=== PATIENT | female | born 1945 | race Caucasian/White ===

== ENCOUNTER → 2016-08-21 | Outpatient (CLI) | payer BC ==
[~2016-08-21] MED LIST: AMIT25TA19 PO; ASPCH81X PO; FAMO20TA11 PO; MULTTAB58 PO; PRED1SUS3 OPB; VERA120T15 PO; calcium PO
--- NOTE | 2016-08-21 13:24 | MAMMOGRAPHY REPORT ---
BILATERAL DIGITAL SCREENING MAMMOGRAM WITH CAD: 08/21/2016 TECHNIQUE: Current study was also evaluated with a Computer Aided Detection (CAD) system. Bilatera l CC and MLO views were obtained. COMPARISON: Comparison is made to exams dated: 08/16/2015 mammogram, 06/26/2013 mammogram, 06/21/2011 mammogram, 06/28/2014 mammogram, 06/24/2012 mammogram, and 06/20/2010 mammogram - [facility]. BREAST COMPOSITION: There are scattered areas of fibroglandular density in both breasts. FINDINGS: No suspicious masses, calcifications, or areas of architectural distortion are noted in e ither breast. There has been no significant interval change compared to prior exams. Scattered bilat eral benign-appearing calcifications are not significantly changed. There are stable benign intrama mmary lymph nodes in the left upper outer quadrant. IMPRESSION: ACR BI-RADS CATEGORY 2: BENIGN There is no mammographic evidence of malignancy. A 1 year screening mammogram is recommended. The p atient will receive written notification of the results. Approximately 10% of breast cancers are not detected with mammography. A negative mammographic repor t should not delay biopsy if a clinically suggestive mass is present. Nupur Dodge M.D. ah/:08/21/2016 10:04:[address] Reporter: Yuridia LANDRY)(Kike), [facility] letter sent: Normal 1/2 BI-RADS Code: ACR BI-RADS Category 2: Benign
== END | disposition home or self-care (01) ==
LOC: C.MAMM 09:44
PROVIDERS: ATTEND Family Medicine
DX: Z12.31 Encounter for screening mammogram for malignant neoplasm of breast (principal)

== ENCOUNTER → 2017-08-22 | Outpatient (CLI) | payer BC ==
--- NOTE | 2017-08-22 15:08 | MAMMOGRAPHY REPORT ---
BILATERAL DIGITAL SCREENING MAMMOGRAM TOMOSYNTHESIS WITH CAD: 08/22/2017 CLINICAL HISTORY: Routine screening. Patient has no complaints. TECHNIQUE: Breast tomosynthesis in addition to standard 2D mammography was performed. Current study was also evaluated with a Computer Aided Detection (CAD) system. COMPARISON: Comparison is made to exams dated: 08/21/2016 mammogram, 08/16/2015 mammogram, 06/28/2014 m ammogram, 06/26/2013 mammogram, 06/24/2012 mammogram, and 06/20/2010 mammogram - [facility]. BREAST COMPOSITION: There are scattered areas of fibroglandular density in both breasts. FINDINGS: No suspicious masses, calcifications, or areas of architectural distortion are noted in ei ther breast. There has been no significant interval change compared to prior exams. Scattered bilater al benign-appearing calcifications are not significantly changed. IMPRESSION: ACR BI-RADS CATEGORY 2: BENIGN There is no mammographic evidence of malignancy. A 1 year screening mammogram is recommended. The pa tient will receive written notification of the results. Approximately 10% of breast cancers are not detected with mammography. A negative mammographic report should not delay biopsy if a clinically suggestive mass is present. Nupur Dodge M.D. /:08/22/2017 12:07:09 Editing Clerk: Jacinda LANDRY)(M), [facility] letter sent: Normal 1/2 BI-RADS Code: ACR BI-RADS Category 2: Benign
== END | disposition home or self-care (01) ==
LOC: C.MAMM 09:46
PROVIDERS: ATTEND Family Medicine
DX: Z12.31 Encounter for screening mammogram for malignant neoplasm of breast (principal)

== ENCOUNTER 2022-10-01 11:33 | Inpatient (IN) ==
--- NOTE | 2022-10-01 12:08 | Emergency Department Note ---
Impression & Plan Hypoxia, Hypokalemia, Otitis externa, Sinus tachycardia ED Provider Note NAME: JERILYN OCAMPO AGE: 76 SEX: F : 1945 ARRIVES VIA: Ambulance INFORMANT: Patient, ED PROVIDER(S): Miguel Evans MD CHIEF COMPLAINT: Tachycardia MEDICAL DECISION MAKING: Patient presents referral from primary care clinic due to concern for tac hycardia. Patient states that she does take verapamil. Patient last took it last evening. IV was established blood was obtained the patient was ordered some Cardizem 20 mg IV in addition to IV fluids. TSH also obtained. Initial EKG does show sinus tach unsure as to whether or not patient could have an AVNRT. The patient's blood work shows a white count of 14. The patient's H&H and platelet count are unremarkable. Patient does not Ajala have an elevated BSG but normal electrolytes with exception of mild hypokalemia 3.4. TSH is normal. CT angiography was ordered as the patient had hypoxia. Patient did relate that she has a history of NAKUL and does use a CPAP. Patient does not use oxygen at home. Former smoker many years ago. COVID-negative. CT angiography of the chest is negative. The patient has had intermittent hypoxia I did speak with the on-call hospice service Evelyn Hurtado PA-C and the patient was admitted by Dr. Hercules. Critical Care: I have personally spent 37 minutes of critical care time in direct management of this patient. This includes bedside care, interpretation of diagnostic studies, and testing, discussion with consultants, patient, and family members, and other require inpatient management activities. This 37 minutes is in excess of all separately billable procedures. Prior /Outside records reviewed: None Differential diagnosis: Premature contractions, electrolyte abnormality, cardiac dysrhythmia, thyroid dysfunction, pulmonary embolism, infection, gastrointestinal, as well as other pathologies. Diagnostics, as interpreted by me: ECG: Sinus tachycardia versus AVNRT with a ventricular rate of 123, wide QRS right bundle branch block pattern, right axis deviation no ST elevations T wave inversion in V2. Patient's EKG is changed with a faster rate wider QRS from comparison February 08, 2012. Cardiac monitoring: An order was placed for continuous cardiac monitoring. The monitor shows a rate of 122 with tachycardic and rate rhythm. Patient was placed on pulse oximetry Medical decision rules: None Imaging studies: See below HPI: Patient presents as a referral from primary care clinic due to concern for elevated heart rate in the 120s. Patient states that she initially presented due to concern for left-sided ear pain. Patient states that she had the ear pain for several days. The patient denies any changes in medications. Patient has no chest pain shortness of breath nausea vomiting no fevers or chills. Patient denies any exertional symptoms and states that she is compliant with her meds. Patient does take verapamil only in the evening time 300 mg and does follow with Dr. Talavera again with [facility] cardiology. Patient denies any falls or trauma PAST MEDICAL HISTORY: See Below PAST SURGICAL HISTORY: See Below SOCIAL HISTORY: See Below HOME MEDICATIONS: See Below ALLERGIES: See Below VITALS: See Below PHYSICAL EXAMINATION: GENERAL: NAD, wearing a mask, non-toxic. EYE EXAM: Normal conjunctiva. PERRL, no anisocoria and EOM's grossly intact w/o pain. Ears: Left EAC noted with associated swelling unable to visualize the TM NECK: Supple, no nuchal rigidity, no adenopathy, non-tender. No signs of meningismus. FROM of the neck with good chin to chest and neck extension. No stridor. LUNGS: Clear to auscultation. Normal chest wall mechanics. HEART: Tachycardic and regular, systolic ejection murmur noted ABDOMEN: Abdomen soft, non-tender, normo-active bowel sounds, no masses, no rebound or guarding. BACK: No CVA TTP. SKIN: No rashes and no bruising. UPPER EXTREMITIES: Upper extremities are grossly normal. LOWER EXTREMITIES: Grossly normal, no edema. Negative Homans' sign bilaterally. Wearing flat wearing glasses NEURO EXAM: A&O x3, cranial nerves II-XII grossly intact, normal speech, moves all 4 extremities. 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 Beliefs That Will Affect Care: None Current Living Situation: Spouse Other Information That Helps Us Care for You: No Feels Safe at Home: Yes Safety Concerns: Feels Safe At This Time Assistive Devices: Cane Allergies Allergies Allergy/AdvReac Type Severity Reaction Status Date / Time No Known Allergies Allergy Unknown Verified 10/01/22 15:23 Home Meds Home Medications Medication Instructions Recorded Confirmed amoxicillin 500 mg capsule 500 mg PO USEASDIRECTD PRN Dental 06/20/19 10/01/22 Work atorvastatin 20 mg tablet (Lipitor) 20 mg PO HS 06/20/19 10/01/22 nortriptyline 25 mg capsule 25 mg PO HS 06/20/19 10/01/22 (Pamelor) verapamil 300 mg capsule 24hr 300 mg PO HS 06/20/19 10/01/[address],ext.release (Verelan PM) calcium carbonate 600 mg-vitamin 1 tab PO HS 01/10/21 10/01/22 D3 10 mcg (400 unit) tablet (Calcium 600 + D(3)) lisinopril 2.5 mg tablet (Zestril) 2.5 mg PO QAM 01/10/21 10/01/22 multivitamin 1 tab PO QAM 01/10/21 10/01/22 prednisolone acetate 1 % eye 1 drp OPB HS 01/10/21 10/01/22 drops,suspension (Pred Forte) alendronate 70 mg tablet 70 mg PO WK 10/01/22 10/01/22 diclofenac sodium 1 % topical gel 1 ea topical QID PRN Pain 10/01/22 10/01/22 famotidine 20 mg tablet 20 mg PO HS 10/01/22 10/01/22 metformin 500 mg tablet,extended 2,000 mg PO DAILYBD 10/01/22 10/01/22 release 24 hr Results & Data (ED) Vital Signs Vital Signs - 24 hr 10/01/22 11:03 10/01/22 11:39 10/01/22 12:47 Temperature 36.8 C Temperature Source Oral Pulse Rate 122 H Pulse Rate from SpO2 Sensor Respiratory Rate 20 Respiratory Effort / Characteristics Non-Labored Spontaneous Respiratory Depth Normal Respiratory Pattern Regular Blood Pressure 149/91 H Blood Pressure Mean 110 Pulse Oximetry 93 93 88 L Oxygen Delivery Method Room Air Room Air Room Air Oxygen Flow Rate 0 0 Sepsis Recent Fever Within 48 Hours No Sepsis New/Unexplained Change in Mental Status N/A Sepsis Action Taken by Nursing No Action Required Oxygen Flow Rate - Titration 2 Pulse Oximetry Post Tiitration 95 10/01/22 12:57 10/01/22 12:56 10/01/22 13:00 Temperature Temperature Source Pulse Rate 115 H 113 H Pulse Rate from SpO2 Sensor 114 H Respiratory Rate 21 Respiratory Effort / Characteristics Respiratory Depth Respiratory Pattern Blood Pressure 167/92 H Blood Pressure Mean 117 Pulse Oximetry 96 Oxygen Delivery Method Oxygen Flow Rate Sepsis Recent Fever Within 48 Hours Sepsis New/Unexplained Change in Mental Status Sepsis Action Taken by Nursing Oxygen Flow Rate - Titration Pulse Oximetry Post Tiitration 10/01/22 13:00 10/01/22 13:30 10/01/22 13:30 Temperature Temperature Source Pulse Rate 114 H 119 H Pulse Rate from SpO2 Sensor 116 H Respiratory Rate 21 17 Respiratory Effort / Characteristics Respiratory Depth Respiratory Pattern Blood Pressure 167/92 H Blood Pressure Mean 117 Pulse Oximetry 96 Oxygen Delivery Method Room Air Oxygen Flow Rate Sepsis Recent Fever Within 48 Hours Sepsis New/Unexplained Change in Mental Status Sepsis Action Taken by Nursing Oxygen Flow Rate - Titration Pulse Oximetry Post Tiitration 10/01/22 13:51 10/01/22 13:51 10/01/22 14:00 Temperature Temperature Source Pulse Rate 119 H Pulse Rate from SpO2 Sensor 119 H Respiratory Rate 23 Respiratory Effort / Characteristics Respiratory Depth Respiratory Pattern Blood Pressure 171/93 H 161/103 H Blood Pressure Mean 119 122 Pulse Oximetry 95 Oxygen Delivery Method Oxygen Flow Rate Sepsis Recent Fever Within 48 Hours Sepsis New/Unexplained Change in Mental Status Sepsis Action Taken by Nursing Oxygen Flow Rate - Titration Pulse Oximetry Post Tiitration 10/01/22 14:00 10/01/22 14:30 10/01/22 14:30 Temperature Temperature Source Pulse Rate 119 H 120 H Pulse Rate from SpO2 Sensor 120 H 120 H Respiratory Rate 23 20 Respiratory Effort / Characteristics Respiratory Depth Respiratory Pattern Blood Pressure 159/96 H Blood Pressure Mean 117 Pulse Oximetry 95 96 Oxygen Delivery Method Oxygen Flow Rate Sepsis Recent Fever Within 48 Hours Sepsis New/Unexplained Change in Mental Status Sepsis Action Taken by Nursing Oxygen Flow Rate - Titration Pulse Oximetry Post Tiitration 10/01/22 15:16 10/01/22 15:16 Temperature Temperature Source Pulse Rate 121 H Pulse Rate from SpO2 Sensor 121 H Respiratory Rate 16 Respiratory Effort / Characteristics Respiratory Depth Respiratory Pattern Blood Pressure 171/92 H Blood Pressure Mean 118 Pulse Oximetry 95 Oxygen Delivery Method Oxygen Flow Rate Sepsis Recent Fever Within 48 Hours Sepsis New/Unexplained Change in Mental Status Sepsis Action Taken by Nursing Oxygen Flow Rate - Titration Pulse Oximetry Post Tiitration Home Medications Current Medication List: was personally reviewed by me Laboratory Data Attestation: I reviewed the patient's lab results. 10/01/22 11:48 10/01/22 11:48 Lab Results 10/01/22 10/01/22 10/01/22 Range/Units 11:48 11:48 11:48 WBC 14.23 H (4.8-10.8) K/ul RBC 5.42 H (4.20-5.40) M/uL Hgb 14.2 (12.0-16.0) g/dl Hct 43.5 (37.0-47.0) % MCV 80.3 (80.0-100.0) fL MCH 26.2 (25.0-34.0) pg MCHC 32.6 (32.0-36.0) g/dL RDW Std Deviation 42.1 (36.4-46.3) fL RDW Coeff of Ronnie 14.5 (11.5-14.5) % Plt Count 326 (130-400) K/uL MPV 9.2 L (9.4-12.4) fL Immature Gran % (Auto) 0.4 % Neut % (Auto) 86.4 % Lymph % (Auto) 7.3 % Harnett % (Auto) 5.4 % Eos % (Auto) 0.1 % Baso % (Auto) 0.4 % Neut # (Auto) 12.30 H (1.40-6.50) K/uL Lymph # (Auto) 1.04 L (1.2-3.4) K/uL Harnett # (Auto) 0.77 H (0.11-0.59) K/uL Eos # (Auto) 0.02 (0-0.50) K/uL Baso # (Auto) 0.05 (0-0.2) K/uL Immature Gran # (Auto) 0.05 (0.01-0.20) K/uL PT 12.4 H (9.0-12.0) Seconds INR 1.2 H (0.9-1.1) APTT 32.8 H (21.0-31.0) Seconds PTT Ratio 1.2 Sodium 137 (136-145) mmol/L Potassium 3.4 L (3.5-5.1) mmol/L Chloride 99 (98-107) mmol/L Carbon Dioxide 27 (21-32) mmol/L Anion Gap 11 (3-11) BUN 9 (6-23) mg/dl Creatinine 0.51 L (0.6-1.2) mg/dl Est Cr Clr Drug Dosing 102.8 ml/min Est GFR ( Amer) 109.8 ml/min Est GFR (Non-Af Amer) 94.7 ml/min BUN/Creatinine Ratio 17.6 (10-20) Glucose 210 H (70-99(Fasting)) mg/dl Calcium 9.7 (8.6-10.3) mg/dl Phosphorus 3.1 (2.5-4.9) mg/dl Magnesium 1.9 (1.7-2.4) mg/dl Total Bilirubin 0.8 (0.2-1.0) mg/dl AST 17 (13-39) U/L ALT 21 (7-52) U/L Alkaline Phosphatase 92 (34-104) U/L Troponin I High Sens 9.7 (0-14) pg/ml Total Protein 8.1 (6.0-8.3) gm/dl Albumin 4.5 (3.4-5.0) gm/dl Globulin 3.6 (2.5-4.0) gm/dl Albumin/Globulin Ratio 1.3 (0.9-2) TSH (0.300-4.500) uIu/ml SARS-CoV-2, RNA, NAAT (NEGATIVE) 10/01/22 10/01/22 10/01/22 Range/Units 11:48 11:48 12:38 WBC (4.8-10.8) K/ul RBC (4.20-5.40) M/uL Hgb (12.0-16.0) g/dl Hct (37.0-47.0) % MCV (80.0-100.0) fL MCH (25.0-34.0) pg MCHC (32.0-36.0) g/dL RDW Std Deviation (36.4-46.3) fL RDW Coeff of Ronnie (11.5-14.5) % Plt Count (130-400) K/uL MPV (9.4-12.4) fL Immature Gran % (Auto) % Neut % (Auto) % Lymph % (Auto) % Harnett % (Auto) % Eos % (Auto) % Baso % (Auto) % Neut # (Auto) (1.40-6.50) K/uL Lymph # (Auto) (1.2-3.4) K/uL Harnett # (Auto) (0.11-0.59) K/uL Eos # (Auto) (0-0.50) K/uL Baso # (Auto) (0-0.2) K/uL Immature Gran # (Auto) (0.01-0.20) K/uL PT (9.0-12.0) Seconds INR (0.9-1.1) APTT (21.0-31.0) Seconds PTT Ratio Sodium (136-145) mmol/L Potassium (3.5-5.1) mmol/L Chloride (98-107) mmol/L Carbon Dioxide (21-32) mmol/L Anion Gap (3-11) BUN (6-23) mg/dl Creatinine (0.6-1.2) mg/dl Est Cr Clr Drug Dosing ml/min Est GFR ( Amer) ml/min Est GFR (Non-Af Amer) ml/min BUN/Creatinine Ratio (10-20) Glucose (70-99(Fasting)) mg/dl Calcium (8.6-10.3) mg/dl Phosphorus Cancelled (2.5-4.9) mg/dl Magnesium (1.7-2.4) mg/dl Total Bilirubin (0.2-1.0) mg/dl AST (13-39) U/L ALT (7-52) U/L Alkaline Phosphatase (34-104) U/L Troponin I High Sens (0-14) pg/ml Total Protein (6.0-8.3) gm/dl Albumin (3.4-5.0) gm/dl Globulin (2.5-4.0) gm/dl Albumin/Globulin Ratio (0.9-2) TSH 0.418 (0.300-4.500) uIu/ml SARS-CoV-2, RNA, NAAT See Comment (NEGATIVE) 10/01/22 Range/Units 15:16 WBC (4.8-10.8) K/ul RBC (4.20-5.40) M/uL Hgb (12.0-16.0) g/dl Hct (37.0-47.0) % MCV (80.0-100.0) fL MCH (25.0-34.0) pg MCHC (32.0-36.0) g/dL RDW Std Deviation (36.4-46.3) fL RDW Coeff of Ronnie (11.5-14.5) % Plt Count (130-400) K/uL MPV (9.4-12.4) fL Immature Gran % (Auto) % Neut % (Auto) % Lymph % (Auto) % Harnett % (Auto) % Eos % (Auto) % Baso % (Auto) % Neut # (Auto) (1.40-6.50) K/uL Lymph # (Auto) (1.2-3.4) K/uL Harnett # (Auto) (0.11-0.59) K/uL Eos # (Auto) (0-0.50) K/uL Baso # (Auto) (0-0.2) K/uL Immature Gran # (Auto) (0.01-0.20) K/uL PT (9.0-12.0) Seconds INR (0.9-1.1) APTT (21.0-31.0) Seconds PTT Ratio Sodium (136-145) mmol/L Potassium (3.5-5.1) mmol/L Chloride (98-107) mmol/L Carbon Dioxide (21-32) mmol/L Anion Gap (3-11) BUN (6-23) mg/dl Creatinine (0.6-1.2) mg/dl Est Cr Clr Drug Dosing ml/min Est GFR ( Amer) ml/min Est GFR (Non-Af Amer) ml/min BUN/Creatinine Ratio (10-20) Glucose (70-99(Fasting)) mg/dl Calcium (8.6-10.3) mg/dl Phosphorus (2.5-4.9) mg/dl Magnesium (1.7-2.4) mg/dl Total Bilirubin (0.2-1.0) mg/dl AST (13-39) U/L ALT (7-52) U/L Alkaline Phosphatase (34-104) U/L Troponin I High Sens (0-14) pg/ml Total Protein (6.0-8.3) gm/dl Albumin (3.4-5.0) gm/dl Globulin (2.5-4.0) gm/dl Albumin/Globulin Ratio (0.9-2) TSH (0.300-4.500) uIu/ml SARS-CoV-2, RNA, NAAT NEGATIVE (NEGATIVE) Administered Medications Acetaminophen (Acetaminophen 325 Mg Tab) 650 mg PO Q4H PRN PRN Reason: Pain or Fever Stop: 10/31/22 19:08 Last Admin: 10/02/22 00:33 Dose: 650 mg Documented By: CARO Atorvastatin Calcium (Atorvastatin 20 Mg Tab) 20 mg PO HS DACIA Stop: 10/31/22 20:59 Last Admin: 10/01/22 21:45 Dose: 20 mg Documented By: CARO Calcium/Vitamin D (Calcium 600mg + Vit D 400 Iu Tab) 1 tab PO HS DACIA Stop: 10/31/22 20:59 Last Admin: 10/01/22 21:45 Dose: 1 tab Documented By: CARO Ciprofloxacin/Dexamethasone (Cipro 0.3%/Dexamethasone 0.1% Otic Susp 7.5ml) 2 drops OTL BID DACIA Stop: 10/31/22 20:59 Last Admin: 10/01/22 21:45 Dose: 2 drops Documented By: CARO Famotidine (Famotidine 20 Mg Tab) 20 mg PO HS DACIA Stop: 10/31/22 20:59 Last Admin: 10/01/22 21:46 Dose: 20 mg Documented By: CARO Nortriptyline HCl (Nortriptyline Hcl 25 Mg Cap) 25 mg PO HS DACIA Stop: 10/31/22 20:59 Last Admin: 10/01/22 21:45 Dose: 25 mg Documented By: CARO Oxycodone HCl (Oxycodone Hcl Ir 5 Mg Tab (Immediate Release)) 5 mg PO Q4H PRN PRN Reason: Pain Stop: 10/15/22 19:08 Last Admin: 10/02/22 00:33 Dose: 5 mg Documented By: CARO Verapamil HCl (Verapamil Hcl 120 Mg Tabcr) 120 mg PO HS DACIA Stop: 10/31/22 20:59 Last Admin: 10/01/22 21:46 Dose: 120 mg Documented By: CARO Verapamil HCl (Verapamil Hcl 180 Mg Tabcr) 180 mg PO HS DACIA Stop: 10/31/22 20:59 Last Admin: 10/01/22 21:46 Dose: 180 mg Documented By: CARO Discontinued Medications Diltiazem HCl (Diltiazem Hcl 5 Mg/Ml 5 Ml Vial) 20 mg IV NOW STA Stop: 10/01/22 12:25 Last Admin: 10/01/22 12:31 Dose: 20 mg Documented By: VADIM Co-signed By: MARIANO Sodium Chloride (Nss) 500 mls @ 999 mls/hr IV .Q31M STA Stop: 10/01/22 12:52 Last Infusion: 10/01/22 13:02 Dose: 0 mls/hr Documented By: Admin: 10/01/22 12:30 Dose: 999 mls/hr Documented By: VADIM Sodium Chloride (Nss 1000ml) 500 mls @ 999 mls/hr IV .Q31M ONE Stop: 10/01/22 15:19 Last Infusion: 10/01/22 17:35 Dose: 0 mls/hr Documented By: Admin: 10/01/22 15:23 Dose: 999 mls/hr Documented By: VADIM Magnesium Sulfate/Dextrose (Magnesium Sulfate / D5w) 1 gm in 100 mls @ 50 mls/hr IV ONE ONE Stop: 10/01/22 17:15 Last Infusion: 10/01/22 17:35 Dose: 0 mls/hr Documented By: Admin: 10/01/22 15:28 Dose: 50 mls/hr Documented By: VADIM Ioversol (Optiray 320 500ml) 111 ml IV ONCE ONE Stop: 10/01/22 13:57 Last Admin: 10/01/22 13:44 Dose: 111 ml Documented By: LAMIN Ioversol (Optiray 350 100ml) 88 ml IV ONCE ONE Stop: 10/01/22 21:02 Last Admin: 10/01/22 21:02 Dose: 88 ml Documented By: YAMIL Lisinopril (Lisinopril 2.5 Mg Tab) 2.5 mg PO ONE ONE Stop: 10/01/22 15:38 Last Admin: 10/01/22 16:46 Dose: 2.5 mg Documented By: VADIM Morphine Sulfate (Morphine Sulfate 4 Mg/Ml 1 Ml Carp\Vial) 4 mg IV NOW STA Stop: 10/01/22 16:01 Last Admin: 10/01/22 16:14 Dose: 4 mg Documented By: VADIM Potassium Chloride (Potassium Chloride Crtab 20 Meq Tabcr) 40 meq PO NOW STA Stop: 10/01/22 15:12 Last Admin: 10/01/22 15:22 Dose: 40 meq Documented By: VADIM Imaging Data Radiologist's Impression: Chest CTA 10/01/22 12:47 CT ANGIOGRAM OF THE CHEST CLINICAL HISTORY: Tachycardia. COMPARISON STUDY: Chest x-ray dated 08/21/2018. Chest CT dated 02/08/2012. TECHNIQUE: Following the IV administration of 111 cc of Optiray 320, CT angiogram of the chest was performed from the upper abdomen to the thoracic inlet utilizing the pulmonary embolus protocol. Images are reviewed in the axial, sagittal, and coronal planes. 3-D MIPS images are created and assessed. IV contrast was administered without complication. A dose lowering technique was utilized adhering to the principles of ALARA. CT DOSE: 428.32 mGy.cm FINDINGS: Thyroid: Mildly enlarged and heterogeneous. Coarse calcifications are noted in the left lobe. Thoracic aorta: There is moderate atherosclerotic calcification of the thoracic aorta, which is normal in caliber and demonstrates standard 3-vessel arch anatomy. No dissection is seen. Pulmonary vasculature: The main pulmonary arteries are dilated suggesting pulmonary artery hypertension. There are no filling defects identified in main, lobar, or segmental pulmonary branches to suggest pulmonary embolus. Heart: The heart is enlarged and without pericardial effusion. The coronary arteries and mitral annulus are densely calcified. Lungs and pleural spaces: Evaluation of the lung parenchyma is degraded by motion artifact. No airspace consolidation or pleural effusion is identified. Foci of parenchymal scarring are seen throughout both lungs. The trachea and central airways are clear. Foci of pleural-based nodularity in the left lower lobe along the major fissure are seen on images #126 and #135. These measure up to 6 mm. An 11 mm focus of pleural-based nodularity along the right major fissure is seen on image #108. These have been present dating back to 2011. There are scattered calcified granulomas. Mediastinum: There is no mediastinal lymphadenopathy. Miley: Clear. Axillae: There is no axillary lymphadenopathy. Upper abdomen: Partially visualized upper abdominal viscera is within normal limits. Skeletal structures: The skeletal structures are osteopenic. Degenerative change is noted in the shoulders and thoracic spine. No lytic or blastic bony lesions are seen. There are subacute to chronic left anterior rib fractures. IMPRESSION: 1. There is no evidence of pulmonary embolus in the main, lobar, or segmental pulmonary arteries. 2. There is no airspace consolidation or pleural effusion. 3. Cardiomegaly. 4. Additional findings as above. ACT 112: Negative or not required by law. Electronically signed by: Yemi Ibarra M.D. 10/01/2022 1:57 PM Discharge Plan Visit Data Chief Complaint: Tachycardia Stated Complaint: TACHYCARDIA ED Provider: Miguel Evans Discharge Problem: Hypoxia, Hypokalemia, Otitis externa, Sinus tachycardia Patient Disposition: Admitted As Inpatient Discharge Instructions Interventions: ED Discharge Assessment Last Done: 10/01/22 18:10
[2022-10-01] MEDS ORDERED: SODIUM CHLORIDE 0.9% 500 ML IV STA (12:22)
[2022-10-01] MEDS ORDERED: dilTIAZem HCl 5 MG/ML 5 ML VIAL IV STA (12:24)
[2022-10-01 12:40] LABS: Basophils # (auto) 0.05 K/uL (0-0.2); Basophils % (auto) 0.4 %; Eosinophils # (auto) 0.02 K/uL (0-0.50); Eosinophils % (auto) 0.1 %; Hematocrit (blood only) 43.5 % (37.0-47.0); Hemoglobin 14.2 g/dl (12.0-16.0); Immature Granulocytes # (auto) 0.05 K/uL (0.01-0.20); Immature Granulocytes % (auto) 0.4 %; Lymphocytes # (auto) 1.04 K/uL (1.2-3.4); Lymphocytes % (auto) 7.3 %; Mean Corpuscular Hemoglobin 26.2 pg (25.0-34.0); Mean Corpuscular Hgb Conc 32.6 g/dL (32.0-36.0); Mean Corpuscular Volume 80.3 fL (80.0-100.0); Mean Platelet Volume 9.2 fL (9.4-12.4); Monocytes # (auto) 0.77 K/uL (0.11-0.59); Monocytes % (auto) 5.4 %; Neutrophils % (auto) 86.4 %; Platelet Count 326 K/uL (130-400); RDW Coefficient of Variation 14.5 % (11.5-14.5); RDW Standard Deviation 42.1 fL (36.4-46.3); Red Blood Count 5.42 M/uL (4.20-5.40); White Blood Count 14.23 K/ul (4.8-10.8)
[2022-10-01 12:57] LABS: INR 1.2 (0.9-1.1); Partial Thromboplastin Ratio 1.2; Partial Thromboplastin Time 32.8 Seconds (21.0-31.0); Prothrombin Time 12.4 Seconds (9.0-12.0)
[2022-10-01 13:00] LABS: Albumin Globulin Ratio 1.3 (0.9-2); Albumin Level 4.5 gm/dl (3.4-5.0); BUN Creatinine Ratio 17.6 (10-20); Bilirubin,Total 0.8 mg/dl (0.2-1.0); Calcium 9.7 mg/dl (8.6-10.3); Creatinine Clr Calc Pharmacy 102.8 ml/min; Est GFR (African American) 109.8 ml/min; Est GFR (Non-African American) 94.7 ml/min; Globulin 3.6 gm/dl (2.5-4.0); Magnesium 1.9 mg/dl (1.7-2.4); Potassium 3.4 mmol/L (3.5-5.1); Total Protein 8.1 gm/dl (6.0-8.3)
[2022-10-01 13:10] LABS: Phosphorus 3.1 mg/dl (2.5-4.9)
[2022-10-01 13:17] LABS: Troponin I High Sensitivity 9.7 pg/ml (0-14)
[2022-10-01] MEDS ORDERED: OPTIRAY 320 500ml IV ONE (13:56)
--- NOTE | 2022-10-01 13:59 | CT Scan Report ---
CT ANGIOGRAM OF THE CHEST CLINICAL HISTORY: Tachycardia. COMPARISON STUDY: Chest x-ray dated 08/21/2018. Chest CT dated 02/08/2012. TECHNIQUE: Following the IV administration of 111 cc of Optiray 320, CT angiogram of the chest was pe rformed from the upper abdomen to the thoracic inlet utilizing the pulmonary embolus protocol. Images are reviewed in the axial, sagittal, and coronal planes. 3-D MIPS images are created and assessed. I V contrast was administered without complication. A dose lowering technique was utilized adhering to the principles of ALARA. CT DOSE: 428.32 mGy.cm FINDINGS: Thyroid: Mildly enlarged and heterogeneous. Coarse calcifications are noted in the left lobe. Thoracic aorta: There is moderate atherosclerotic calcification of the thoracic aorta, which is goldie l in caliber and demonstrates standard 3-vessel arch anatomy. No dissection is seen. Pulmonary vasculature: The main pulmonary arteries are dilated suggesting pulmonary artery hypertensi on. There are no filling defects identified in main, lobar, or segmental pulmonary branches to sugges t pulmonary embolus. Heart: The heart is enlarged and without pericardial effusion. The coronary arteries and mitral annul us are densely calcified. Lungs and pleural spaces: Evaluation of the lung parenchyma is degraded by motion artifact. No airspa ce consolidation or pleural effusion is identified. Foci of parenchymal scarring are seen throughout both lungs. The trachea and central airways are clear. Foci of pleural-based nodularity in the left l ower lobe along the major fissure are seen on images #126 and #135. These measure up to 6 mm. An 11 m m focus of pleural-based nodularity along the right major fissure is seen on image #108. These have b een present dating back to 2011. There are scattered calcified granulomas. Mediastinum: There is no mediastinal lymphadenopathy. Miley: Clear. Axillae: There is no axillary lymphadenopathy. Upper abdomen: Partially visualized upper abdominal viscera is within normal limits. Skeletal structures: The skeletal structures are osteopenic. Degenerative change is noted in the shou lders and thoracic spine. No lytic or blastic bony lesions are seen. There are subacute to chronic le ft anterior rib fractures. IMPRESSION: 1. There is no evidence of pulmonary embolus in the main, lobar, or segmental pulmonary arteries. 2. There is no airspace consolidation or pleural effusion. 3. Cardiomegaly. 4. Additional findings as above. ACT 112: Negative or not required by law. Electronically signed by: Yemi Ibarra M.D. 10/01/2022 1:57 PM
[2022-10-01] MEDS ORDERED: SODIUM CHLORIDE 0.9% 1000ML 500 ML IV ONE (14:49)
[2022-10-01] MEDS ORDERED: POTASSIUM CHLORIDE CRTAB 20 MEQ TABCR PO STA (15:11)
--- NOTE | 2022-10-01 15:15 | Electrocardiogram Report ---
Test Reason : Blood Pressure : / mmHG Vent. Rate : 123 BPM Atrial Rate : 123 BPM P-R Int : 136 ms QRS Dur : 128 ms QT Int : 330 ms P-R-T Axes : 056 078 -03 degrees QTc Int : 472 ms Sinus tachycardia Possible Left atrial enlargement Right bundle branch block T wave abnormality, consider inferior ischemia Abnormal ECG When compared with ECG of 08-FEB-2012 13:57, Vent. rate has increased BY 45 BPM Right bundle branch block is now Present Confirmed by Srinivas Price ([id number]) on 10/01/2022 3:15:20 PM Referred By: Confirmed By:Srinivas Price
[2022-10-01] MEDS ORDERED: MAGNESIUM SULFATE / D5W 1 GM/100 ML BAG IV ONE (15:16)
--- NOTE | 2022-10-01 15:20 | Electrocardiogram Report ---
Test Reason : Blood Pressure : / mmHG Vent. Rate : 115 BPM Atrial Rate : 115 BPM P-R Int : 142 ms QRS Dur : 136 ms QT Int : 342 ms P-R-T Axes : 057 081 004 degrees QTc Int : 473 ms Sinus tachycardia Possible Left atrial enlargement Right bundle branch block Abnormal ECG When compared with ECG of 01-OCT-2022 11:38, (unconfirmed) No significant change was found Confirmed by Srinivas Price ([id number]) on 10/01/2022 3:19:44 PM Referred By: REFERRED SELF Confirmed By:Srinivas Price
[2022-10-01] MEDS ORDERED: lisinopril 2.5 MG TAB PO ONE (15:37)
--- NOTE | 2022-10-01 15:53 | Hospitalist Consultation ---
Date of Consultation October 01, 2022 Assessment & Plan (1) Sinus tachycardia: in setting of pain/otitis ear infection CT chest negative for PE/effusion/consolidative process EKG discussed w/ Dr Rice, patient primary green chainer. Patient w/ hx SVT s/p successful ablation. Agrees EKG w/ Sinus tachycardia, not SVT. [place] physiological response to pain in setting of ear infection and recommended treatment of both pain/infection and HR should respond Had transient hypoxia w/ SpO2 drop reported to upper 80s, placed on 2L w/ response.Denied any CP/SOb, hx smoking >20 years ago. CTA again negative. ?transient Titrated to RA and SpO2 remained 95% and discussed w/ ER tx of ear infection and pain (tolerated oxycodone in the past without issue) Patient would like to go home and if pain/infection treatment initiated and HR improved patient able for discharge from ER w/ F/u outpatient PCP/cards (2) Otitis externa: Initial complaint on admit Amox rx by PCP, rec'd ER topical gtt w/ Ciprodex for infection, pain control given ineffectiveness of Tylenol/Ibuprofen at home (3) Hypoxia: transient, ?real however ER provider noted good waveform Lungs clear on exam, no SOB. CTA w/o PE or PNA or effusion/consolidative process titrated to room air and remained 95% (4) Hypokalemia: given PO k/mag prior to dc Plan Discussed w/ ER provider and recommendation for pain control and monitoring of HR History of Present Illness Reason for Consultation: tachycardia, hypoxia Requesting Physician: Dr Evans Attending Physician: Dr Evans History of Present Illness 76yo female with PMHx significant for SVT (s/p ablation, follows with Dr Rice) was seen by PCP for concerns of left ear pain and sent ot ER for concerns of tachycardia/SVT. She does take verapamil 300mg HS. Rates elevated to 120-130s, however patient denies any chest pain/shortness of breath. Had not had anything to eat yet today but was eating/drinking alright up until today. She is reporting pain and drainage from her left ear. Had been sent rx for Amoxicillin but that went to pharmacy per patient and not helpful in current situation. Patient had O2 drop to 80s, on 2L and reported good wave form. Patient see, saturating well and denied any SOB, rates 110s and turned off O2 w/ great wave form and SpO2 95% at that time. Patient stated she would be more comfortable going home and discussed giving pain control and monitoring heart rate/O2 and if remains stable and rates improved w/ her pain controlled, EKG was reviewed by Dr Rice and felt physiological response/tachycardia to pain from her ear infection and recommended pain control and treatment of ear infection. Former smoker, quit in 1992. CT chest NEGATIVE for PE, no effusion or consolidative process. She was given Cardizem and IVF w/o improvement in rates, but stated ongoing ear discomfort, had taken some ibuprofen and Tylenol at home but not very effective. Patient would like to go home if at all possible -- discussed with ER provider and will attempt pain control and monitor and hopefully be able to discharge patient home today from the ER. Discussed likely benefit from topical Ciprodex given otitis externa/appearance on exam in addition to her oral abx already prescribed by PCP given her underlying DM. Allergies Allergy/AdvReac Type Severity Reaction Status Date / Time No Known Allergies Allergy Unknown Verified 10/01/22 15:23 Home Medications Medication Instructions Recorded Confirmed Type amoxicillin 500 mg capsule 500 mg PO USEASDIRECTD PRN Dental 06/20/19 10/01/22 History Work atorvastatin 20 mg tablet (Lipitor) 20 mg PO HS 06/20/19 10/01/22 History nortriptyline 25 mg capsule 25 mg PO HS 06/20/19 10/01/22 History (Pamelor) verapamil 300 mg capsule 24hr 300 mg PO HS 06/20/19 10/01/[address],ext.release (Verelan PM) calcium carbonate 600 mg-vitamin 1 tab PO HS 01/10/21 10/01/22 History D3 10 mcg (400 unit) tablet (Calcium 600 + D(3)) lisinopril 2.5 mg tablet (Zestril) 2.5 mg PO QAM 01/10/21 10/01/22 History multivitamin 1 tab PO QAM 01/10/21 10/01/22 History prednisolone acetate 1 % eye 1 drp OPB HS 01/10/21 10/01/22 History drops,suspension (Pred Forte) alendronate 70 mg tablet 70 mg PO WK 10/01/22 10/01/22 History diclofenac sodium 1 % topical gel 1 ea topical QID PRN Pain 10/01/22 10/01/22 History famotidine 20 mg tablet 20 mg PO HS 10/01/22 10/01/22 History metformin 500 mg tablet,extended 2,000 mg PO DAILYBD 10/01/22 10/01/22 History release 24 hr Patient History Medical History GERD (gastroesophageal reflux disease) History of paroxysmal supraventricular tachycardia Hyperlipidemia Hypertension Surgical History S/P ablation operation for arrhythmia Social History Smoking Status: Former smoker Preferred Language: Ma[place] Feels Safe at Home: Yes Review of Systems Review of Systems: All systems reviewed & are unremarkable except as noted in HPI & below Physical Exam Physical Exam: General: WN/WD elderly female sitting up in bed, NAD HEENT: head normocephalic, LEFT ear w/ edema of EAC/scant bloody drainage. Resp: CTA, no w/c, titrated to room air SpO2 remained 95% CV: tachycardic (rates 121bpm on monitor), no significant m/r/g, trace LE edema (reports baseline), calves nontender and pulses palpable GI: + BS, soft/NT ; no rae MSK/Neuro: no focal deficit, no slurred speech/facial droop Psych: AOX3, pleasant and cooperative Results & Data Results & Data Vital Signs (Past 12 Hours) Vital Signs Temp Pulse Resp BP Pulse Ox O2 Del Method O2 Flow Rate 10/01/22 14:00 119 H 23 95 10/01/22 14:00 161/103 H 10/01/22 13:51 119 H 23 95 10/01/22 13:51 171/93 H 10/01/22 13:30 119 H 17 10/01/22 13:30 167/92 H 10/01/22 13:00 114 H 21 96 Room Air 10/01/22 13:00 167/92 H 10/01/22 12:56 113 H 21 96 10/01/22 12:57 115 H 10/01/22 12:47 88 L Room Air 0 10/01/22 11:39 93 Room Air 0 10/01/22 11:03 36.8 C 122 H 20 149/91 H 93 Room Air PG Care Time/CCT Total # of Minutes Spent Total Time Spent with Patient: Total time spent is greater than 50% in coordination of care (as documented) at patient's floor/unit and/or counseling patient: Coding Level of Care Code 61668 IN/OBS CONSULT LVL 3,45M Diagnoses Sinus tachycardia R00.0 Otitis externa H60.90 Hypoxia R09.02 Hypokalemia E87.6
[2022-10-01] MEDS ORDERED: MoRPHine SULFATE 4 MG/ML 1 ML CARP\\VIAL IV STA (16:00)
--- NOTE | 2022-10-01 16:10 | History & Physical Report ---
Date of Service October 01, 2022 Assessment & Plan (1) Sinus tachycardia: Plan: in setting of pain/otitis ear infection CT chest negative for PE/effusion/consolidative process EKG discussed w/ Dr Rice, patient primary analyst business analysis. Patient w/ hx SVT s/p successful ablation. Agrees EKG w/ Sinus tachycardia, not SVT. Kinnear physiological response to pain in setting of ear infection and recommended treatment of both pain/infection and HR should respond Had transient hypoxia w/ SpO2 drop reported to upper 80s, placed on 2L w/ response.Denied any CP/SOb, hx smoking >20 years ago. CTA again negative. ?transient Titrated to RA and SpO2 remained 95% and discussed w/ ER tx of ear infection and pain (tolerated oxycodone in the past without issue) but patient then taken for a walk and dropping to 85% w/ ambulation. Does have NAKUL and wears CPAP at night w/ O2 Already given 1.5L IVF, will hold off further Decision to admit given continued hypoxia Admit medical w/ telemetry given tachycardia Blood cultures given leukocytosis Ciprodex for otitis externa for now CT facial bones w/ contrast to look for periapical abscess given dental pain/ear infection pending, consider c/w Dr Licea/Yani but will utilize topical for now K replacement for K 3.4, will give 1gm IV magnesium as well Monitor labs in AM (2) Otitis externa: Plan: Initial complaint on admit Amox rx by PCP Will use Ciprodex drops for now Check CT facial bones to r/o dental infection given leukocytosis/tachycardia fro other causes Pain control Dental soft diet for now, NPO if concerns for need for surgery (3) Hypoxia: Plan: CTA chest negative for acute finding/PE/effusion or PNA Noted Foci of parenchymal scarring are seen throughout both lungs. The trachea and central airways are clear. Foci of pleural-based nodularity in the left lower lobe along the major fissure are seen on images #126 and #135. These measure up to 6 mm. An 11 mm focus of pleural-based nodularity along the right major fissure is seen on image #108. These have been present dating back to 2011. There are scattered calcified granulomas. Supplemental O2 to maintain sats Titrate O2 as able Further investigation for causes of tachycardia including pain/etc as above Monitor Prior smoker >20 years ago (4) Hypokalemia: Plan: PO K replacement (did have some choking w/ this). Mag 1gm IV Monitor labs in AM SVT - Hx of such, follows with Dr Rice-- ekg reviewed as above continue verapamil tx infection, pain control as above monitor on telemetry HTN - Lisinopril x 1 now, resume home dose for AM given BP 161/103 (no headache/blurry vision reported) - Continue verapamil 300mg HS HLD - continue Lipitor 20mg HS GERD -Continue Pepcid daily History of Present Illness Chief Complaint: ear pain Primary Care Provider: Sandra Montes 76yo female with PMHx significant for SVT (s/p ablation, follows with Dr Rice), NAKUL (CPAP HS w/ oxygen), GERD, HTN, HLD, was seen by PCP for concerns of left ear pain and sent ot ER for concerns of tachycardia/SVT. She does take verapamil 300mg HS. Rates elevated to 120-130s, however patient denies any chest pain/shortness of breath. Had not had anything to eat yet today but was eating/drinking alright up until today. She is reporting pain and drainage from her left ear. Had been sent rx for Amoxicillin but that went to pharmacy per patient and not helpful in current situation. Patient had O2 drop to 80s, on 2L and reported good wave form. Patient see, saturating well and denied any SOB, rates 110s and turned off O2 w/ great wave form and SpO2 95% at that time. Patient stated she would be more comfortable going home and discussed giving pain control and monitoring heart rate/O2 and if remains stable and rates improved w/ her pain controlled, EKG was reviewed by Dr Rice and felt physiological response/tachycardia to pain from her ear infection and recommended pain control and treatment of ear infection. Former smoker, quit in 1992. CT chest NEGATIVE for PE, no effusion or consolidative process. She was given Cardizem and IVF w/o improvement in rates, but stated ongoing ear discomfort, had taken some ibuprofen and Tylenol at home but not very effective. Has not gotten anything for pain at present. Has been given multiple IVF - 1.5L thus far. Patient initially like to go home if at all possible -- discussed with ER provider and will attempt pain control and monitor and hopefully be able to discharge patient home today from the ER, however sustained SpO2 to 85% walking. Also concerns about possible dental infection and will check CT soft tissue. Allergies Allergy/AdvReac Type Severity Reaction Status Date / Time No Known Allergies Allergy Unknown Verified 10/01/22 15:23 Home Medications Medication Instructions Recorded Confirmed Type amoxicillin 500 mg capsule 500 mg PO USEASDIRECTD PRN Dental 06/20/19 10/01/22 History Work atorvastatin 20 mg tablet (Lipitor) 20 mg PO HS 06/20/19 10/01/22 History nortriptyline 25 mg capsule 25 mg PO HS 06/20/19 10/01/22 History (Pamelor) verapamil 300 mg capsule 24hr 300 mg PO HS 06/20/19 10/01/[address],ext.release (Verelan PM) calcium carbonate 600 mg-vitamin 1 tab PO HS 01/10/21 10/01/22 History D3 10 mcg (400 unit) tablet (Calcium 600 + D(3)) lisinopril 2.5 mg tablet (Zestril) 2.5 mg PO QAM 01/10/21 10/01/22 History multivitamin 1 tab PO QAM 01/10/21 10/01/22 History prednisolone acetate 1 % eye 1 drp OPB HS 01/10/21 10/01/22 History drops,suspension (Pred Forte) alendronate 70 mg tablet 70 mg PO WK 10/01/22 10/01/22 History diclofenac sodium 1 % topical gel 1 ea topical QID PRN Pain 10/01/22 10/01/22 History famotidine 20 mg tablet 20 mg PO HS 10/01/22 10/01/22 History metformin 500 mg tablet,extended 2,000 mg PO DAILYBD 10/01/22 10/01/22 History release 24 hr Past Med/Surg History Medical History GERD (gastroesophageal reflux disease) History of paroxysmal supraventricular tachycardia Hyperlipidemia Hypertension Surgical History S/P ablation operation for arrhythmia Social History Smoking Status: Former smoker Second Hand Exposure: No; Do You Dip or Chew Tobacco: No; Tobacco Cessation Education Requested by Patient: No Hx Alcohol Use: No Hx Substance Use: No Preferred Language: Peruvian [employer] Required: No Beliefs That Will Affect Care: None Current Living Situation: Spouse Other Information That Helps Us Care for You: No Feels Safe at Home: Yes Safety Concerns: Feels Safe At This Time Assistive Devices: Cane Physical Exam Physical Exam: General: WN/WD elderly female sitting up in bed, NAD HEENT: head normocephalic, LEFT ear w/ edema of EAC/scant bloody drainage, cervical lymphadenopathy Resp: CTA, no w/c, titrated to room air SpO2 remained 95% CV: tachycardic (rates 121bpm on monitor), no significant m/r/g, trace LE edema (reports baseline), calves nontender and pulses palpable GI: + BS, soft/NT ; no rae MSK/Neuro: no focal deficit, no slurred speech/facial droop Psych: AOX3, pleasant and cooperative Results & Data Results & Data Vital Signs (Past 12 Hours) Vital Signs Temp Pulse Resp BP Pulse Ox O2 Del Method O2 Flow Rate 10/01/22 14:00 119 H 23 95 10/01/22 14:00 161/103 H 10/01/22 13:51 119 H 23 95 10/01/22 13:51 171/93 H 10/01/22 13:30 119 H 17 10/01/22 13:30 167/92 H 10/01/22 13:00 114 H 21 96 Room Air 10/01/22 13:00 167/92 H 10/01/22 12:56 113 H 21 96 10/01/22 12:57 115 H 10/01/22 12:47 88 L Room Air 0 10/01/22 11:39 93 Room Air 0 10/01/22 11:03 36.8 C 122 H 20 149/91 H 93 Room Air Laboratory Results 10/01/22 10/01/22 10/01/22 Range/Units 15:16 12:38 11:48 WBC (4.8-10.8) K/ul RBC (4.20-5.40) M/uL Hgb (12.0-16.0) g/dl Hct (37.0-47.0) % MCV (80.0-100.0) fL MCH (25.0-34.0) pg MCHC (32.0-36.0) g/dL RDW Std Deviation (36.4-46.3) fL RDW Coeff of Ronnie (11.5-14.5) % Plt Count (130-400) K/uL MPV (9.4-12.4) fL Immature Gran % (Auto) % Neut % (Auto) % Lymph % (Auto) % Worth % (Auto) % Eos % (Auto) % Baso % (Auto) % Neut # (Auto) (1.40-6.50) K/uL Lymph # (Auto) (1.2-3.4) K/uL Worth # (Auto) (0.11-0.59) K/uL Eos # (Auto) (0-0.50) K/uL Baso # (Auto) (0-0.2) K/uL Immature Gran # (Auto) (0.01-0.20) K/uL PT (9.0-12.0) Seconds INR (0.9-1.1) APTT (21.0-31.0) Seconds PTT Ratio Sodium (136-145) mmol/L Potassium (3.5-5.1) mmol/L Chloride (98-107) mmol/L Carbon Dioxide (21-32) mmol/L Anion Gap (3-11) BUN (6-23) mg/dl Creatinine (0.6-1.2) mg/dl Est Cr Clr Drug Dosing ml/min Est GFR ( Amer) ml/min Est GFR (Non-Af Amer) ml/min BUN/Creatinine Ratio (10-20) Glucose (70-99(Fasting)) mg/dl Calcium (8.6-10.3) mg/dl Phosphorus Cancelled (2.5-4.9) mg/dl Magnesium (1.7-2.4) mg/dl Total Bilirubin (0.2-1.0) mg/dl AST (13-39) U/L ALT (7-52) U/L Alkaline Phosphatase (34-104) U/L Troponin I High Sens (0-14) pg/ml Total Protein (6.0-8.3) gm/dl Albumin (3.4-5.0) gm/dl Globulin (2.5-4.0) gm/dl Albumin/Globulin Ratio (0.9-2) TSH (0.300-4.500) uIu/ml SARS-CoV-2, RNA, NAAT NEGATIVE See Comment (NEGATIVE) 10/01/22 10/01/22 10/01/22 Range/Units 11:48 11:48 11:48 WBC (4.8-10.8) K/ul RBC (4.20-5.40) M/uL Hgb (12.0-16.0) g/dl Hct (37.0-47.0) % MCV (80.0-100.0) fL MCH (25.0-34.0) pg MCHC (32.0-36.0) g/dL RDW Std Deviation (36.4-46.3) fL RDW Coeff of Ronnie (11.5-14.5) % Plt Count (130-400) K/uL MPV (9.4-12.4) fL Immature Gran % (Auto) % Neut % (Auto) % Lymph % (Auto) % Worth % (Auto) % Eos % (Auto) % Baso % (Auto) % Neut # (Auto) (1.40-6.50) K/uL Lymph # (Auto) (1.2-3.4) K/uL Worth # (Auto) (0.11-0.59) K/uL Eos # (Auto) (0-0.50) K/uL Baso # (Auto) (0-0.2) K/uL Immature Gran # (Auto) (0.01-0.20) K/uL PT 12.4 H (9.0-12.0) Seconds INR 1.2 H (0.9-1.1) APTT 32.8 H (21.0-31.0) Seconds PTT Ratio 1.2 Sodium 137 (136-145) mmol/L Potassium 3.4 L (3.5-5.1) mmol/L Chloride 99 (98-107) mmol/L Carbon Dioxide 27 (21-32) mmol/L Anion Gap 11 (3-11) BUN 9 (6-23) mg/dl Creatinine 0.51 L (0.6-1.2) mg/dl Est Cr Clr Drug Dosing 102.8 ml/min Est GFR ( Amer) 109.8 ml/min Est GFR (Non-Af Amer) 94.7 ml/min BUN/Creatinine Ratio 17.6 (10-20) Glucose 210 H (70-99(Fasting)) mg/dl Calcium 9.7 (8.6-10.3) mg/dl Phosphorus 3.1 (2.5-4.9) mg/dl Magnesium 1.9 (1.7-2.4) mg/dl Total Bilirubin 0.8 (0.2-1.0) mg/dl AST 17 (13-39) U/L ALT 21 (7-52) U/L Alkaline Phosphatase 92 (34-104) U/L Troponin I High Sens 9.7 (0-14) pg/ml Total Protein 8.1 (6.0-8.3) gm/dl Albumin 4.5 (3.4-5.0) gm/dl Globulin 3.6 (2.5-4.0) gm/dl Albumin/Globulin Ratio 1.3 (0.9-2) TSH 0.418 (0.300-4.500) uIu/ml SARS-CoV-2, RNA, NAAT (NEGATIVE) 10/01/22 Range/Units 11:48 WBC 14.23 H (4.8-10.8) K/ul RBC 5.42 H (4.20-5.40) M/uL Hgb 14.2 (12.0-16.0) g/dl Hct 43.5 (37.0-47.0) % MCV 80.3 (80.0-100.0) fL MCH 26.2 (25.0-34.0) pg MCHC 32.6 (32.0-36.0) g/dL RDW Std Deviation 42.1 (36.4-46.3) fL RDW Coeff of Ronnie 14.5 (11.5-14.5) % Plt Count 326 (130-400) K/uL MPV 9.2 L (9.4-12.4) fL Immature Gran % (Auto) 0.4 % Neut % (Auto) 86.4 % Lymph % (Auto) 7.3 % Worth % (Auto) 5.4 % Eos % (Auto) 0.1 % Baso % (Auto) 0.4 % Neut # (Auto) 12.30 H (1.40-6.50) K/uL Lymph # (Auto) 1.04 L (1.2-3.4) K/uL Worth # (Auto) 0.77 H (0.11-0.59) K/uL Eos # (Auto) 0.02 (0-0.50) K/uL Baso # (Auto) 0.05 (0-0.2) K/uL Immature Gran # (Auto) 0.05 (0.01-0.20) K/uL PT (9.0-12.0) Seconds INR (0.9-1.1) APTT (21.0-31.0) Seconds PTT Ratio Sodium (136-145) mmol/L Potassium (3.5-5.1) mmol/L Chloride (98-107) mmol/L Carbon Dioxide (21-32) mmol/L Anion Gap (3-11) BUN (6-23) mg/dl Creatinine (0.6-1.2) mg/dl Est Cr Clr Drug Dosing ml/min Est GFR ( Amer) ml/min Est GFR (Non-Af Amer) ml/min BUN/Creatinine Ratio (10-20) Glucose (70-99(Fasting)) mg/dl Calcium (8.6-10.3) mg/dl Phosphorus (2.5-4.9) mg/dl Magnesium (1.7-2.4) mg/dl Total Bilirubin (0.2-1.0) mg/dl AST (13-39) U/L ALT (7-52) U/L Alkaline Phosphatase (34-104) U/L Troponin I High Sens (0-14) pg/ml Total Protein (6.0-8.3) gm/dl Albumin (3.4-5.0) gm/dl Globulin (2.5-4.0) gm/dl Albumin/Globulin Ratio (0.9-2) TSH (0.300-4.500) uIu/ml SARS-CoV-2, RNA, NAAT (NEGATIVE) Diagnostic Findings Chest CTA 10/01/22 12:47 CT ANGIOGRAM OF THE CHEST CLINICAL HISTORY: Tachycardia. COMPARISON STUDY: Chest x-ray dated 08/21/2018. Chest CT dated 02/08/2012. TECHNIQUE: Following the IV administration of 111 cc of Optiray 320, CT angiogram of the chest was performed from the upper abdomen to the thoracic inlet utilizing the pulmonary embolus protocol. Images are reviewed in the axial, sagittal, and coronal planes. 3-D MIPS images are created and assessed. IV contrast was administered without complication. A dose lowering technique was utilized adhering to the principles of ALARA. CT DOSE: 428.32 mGy.cm FINDINGS: Thyroid: Mildly enlarged and heterogeneous. Coarse calcifications are noted in the left lobe. Thoracic aorta: There is moderate atherosclerotic calcification of the thoracic aorta, which is normal in caliber and demonstrates standard 3-vessel arch anatomy. No dissection is seen. Pulmonary vasculature: The main pulmonary arteries are dilated suggesting pulmonary artery hypertension. There are no filling defects identified in main, lobar, or segmental pulmonary branches to suggest pulmonary embolus. Heart: The heart is enlarged and without pericardial effusion. The coronary arteries and mitral annulus are densely calcified. Lungs and pleural spaces: Evaluation of the lung parenchyma is degraded by motion artifact. No airspace consolidation or pleural effusion is identified. Foci of parenchymal scarring are seen throughout both lungs. The trachea and central airways are clear. Foci of pleural-based nodularity in the left lower lobe along the major fissure are seen on images #126 and #135. These measure up to 6 mm. An 11 mm focus of pleural-based nodularity along the right major fissure is seen on image #108. These have been present dating back to 2012. There are scattered calcified granulomas. Mediastinum: There is no mediastinal lymphadenopathy. Miley: Clear. Axillae: There is no axillary lymphadenopathy. Upper abdomen: Partially visualized upper abdominal viscera is within normal limits. Skeletal structures: The skeletal structures are osteopenic. Degenerative change is noted in the shoulders and thoracic spine. No lytic or blastic bony lesions are seen. There are subacute to chronic left anterior rib fractures. IMPRESSION: 1. There is no evidence of pulmonary embolus in the main, lobar, or segmental pulmonary arteries. 2. There is no airspace consolidation or pleural effusion. 3. Cardiomegaly. 4. Additional findings as above. ACT 112: Negative or not required by law. Electronically signed by: Yemi Ibarra M.D. 10/01/2022 1:57 PM Supervising Physician Co-Signing Physician Notes I personally saw and examined the patient. I verified all perdomo points and agree with Evelyn Beltre PA-C with the following exceptions and/or additions: 76 year old female presents to the ER with left ear pain, left tooth pain and tachycardia. Sent from PCP office due to significant tachycardia. O/E Alert &Ox3, HS tachycardia, regular rhythm, Chest CTAB, Abdo SNT, Left ear with significant erythema and some pus, unable to visualize ear drum. A/P Leucocytosis, sinus tachycardia - concerning for more systemic infection or possibly patient not taken her usual AV kiya blocking agents. Blood cultures. Trend WBC. Currently no source of infection other than otitis externa to direct antibiotics. Despite meeting criteria for SIRS she is not septic appearing and feels mostly at her baseline. Facial CT pending. Hypoxia - Sustains 84% on room air on exertion. CT for PE negative for pneumonia and she has a benign exam on auscultation. Possibly more chronic with her underlying sleep apnea as she tends to have resting sats on room air around 90% previously. Otitis externa - start Ciprodex ear drops PG Care Time/CCT Total # of Minutes Spent Total Time Spent with Patient: Total time spent is greater than 50% in coordination of care (as documented) at patient's floor/unit and/or counseling patient: Coding Level of Care Code 00629 INT INP/OBS CARE 375MIN Diagnoses Sinus tachycardia R00.0 Otitis externa H60.90 Hypoxia R09.02 Hypokalemia E87.6
[2022-10-01] MEDS ORDERED: DICLOFENAC SOD 1% GEL 100 GM TUBE EXT PRN (19:09)
[2022-10-01] MEDS ORDERED: ONDANSETRON INJ 2 MG/ML 2 ML VIAL IV PRN (19:09)
[2022-10-01] MEDS ORDERED: OPTIRAY 350 100ml IV ONE (21:01)
[2022-10-01] MEDS: CIPRO 0.3%/DEXAMETHASONE 0.1% OTIC SUSP 7.5ML OTL SCH (21:45)
[2022-10-01] MEDS: ATORVASTATIN 20 MG TAB PO SCH (21:45)
[2022-10-01] MEDS: CALCIUM 600MG + VIT D 400 IU TAB PO SCH (21:45)
[2022-10-01] MEDS: NORTRIPTYLINE HCL 25 MG CAP PO SCH (21:45)
[2022-10-01] MEDS: VERAPAMIL HCL 180 MG TABCR PO SCH (21:46)
[2022-10-01] MEDS: FAMOTIDINE 20 MG TAB PO SCH (21:46)
[2022-10-01] MEDS: VERAPAMIL HCL 120 MG TABCR PO SCH (21:46)
--- NOTE | 2022-10-01 22:19 | CT Scan Report ---
Exam(s): CT FACIAL With Contrast IV Amt: 88 cc's EXAM: CT Maxillofacial With Intravenous Contrast CLINICAL HISTORY: eval periapical abscess. TECHNIQUE: Axial computed tomography images of the face with intravenous contrast. CTDI is 9.54 mGy and DLP is 169.42 mGy-cm. Automated exposure control was utilized for the study. A dose lowering technique was utilized adhering to the principles of ALARA. CONTRAST: Patient received 88 cc's of IV contrast COMPARISON: No relevant prior studies available. FINDINGS: Artifacts: There is extensive beam Perez artifact through the oropharynx from dental hardware. Bones/joints: No acute fracture. Soft tissues: Unremarkable. No significant overlying soft tissue abnormality identified. Vasculature: The included transverse and sigmoid sinuses are patent. Orbits: Unremarkable. Sinuses: Unremarkable. No air-fluid levels. Mastoid air cells: Scattered left mastoid effusions. The right mastoid air cells are well-aerated. Dental: No definite periapical lucency identified in the remaining teeth. Brain: The visualized intracranial examination is unremarkable. IMPRESSION: 1. No definite periapical lucency identified in the remaining teeth. Mucosal thickening involving the inferior maxillary sinuses. The remaining paranasal sinuses are well-aerated. 2. Scattered left mastoid effusions. The clinical significance of this finding is indeterminant. The diagnosis of mastoiditis should be made clinically. No significant overlying soft tissue abnormality. Electronically signed by: Alex Larson MD 10/01/22 22:18 PM
[2022-10-02] MEDS: oxyCODONE HCL IR 5 MG TAB (IMMEDIATE RELEASE) PO PRN ×2 (00:33→09:52)
[2022-10-02] MEDS: ACETAMINOPHEN 325 MG TAB PO PRN ×2 (00:33→15:01)
[2022-10-02 06:19] LABS: Basophils # (auto) 0.05 K/uL (0-0.2); Basophils % (auto) 0.3 %; Eosinophils # (auto) 0.02 K/uL (0-0.50); Eosinophils % (auto) 0.1 %; Hematocrit (blood only) 42.1 % (37.0-47.0); Hemoglobin 13.5 g/dl (12.0-16.0); Immature Granulocytes # (auto) 0.09 K/uL (0.01-0.20); Immature Granulocytes % (auto) 0.6 %; Lymphocytes # (auto) 1.04 K/uL (1.2-3.4); Lymphocytes % (auto) 6.5 %; Mean Corpuscular Hemoglobin 26.1 pg (25.0-34.0); Mean Corpuscular Hgb Conc 32.1 g/dL (32.0-36.0); Mean Corpuscular Volume 81.4 fL (80.0-100.0); Mean Platelet Volume 8.9 fL (9.4-12.4); Monocytes # (auto) 1.14 K/uL (0.11-0.59); Monocytes % (auto) 7.1 %; Neutrophils # (auto) 13.65 K/uL (1.40-6.50); Neutrophils % (auto) 85.4 %; Platelet Count 297 K/uL (130-400); RDW Coefficient of Variation 14.6 % (11.5-14.5); RDW Standard Deviation 42.9 fL (36.4-46.3); Red Blood Count 5.17 M/uL (4.20-5.40); White Blood Count 15.99 K/ul (4.8-10.8)
[2022-10-02 06:45] LABS: Albumin Globulin Ratio 1.1 (0.9-2); BUN Creatinine Ratio 27.3 (10-20); Creatinine Clr Calc Pharmacy 118.8 ml/min; Est GFR (African American) 115.3 ml/min; Est GFR (Non-African American) 99.4 ml/min; Globulin 3.5 gm/dl (2.5-4.0); Magnesium 2.1 mg/dl (1.7-2.4); Potassium 3.5 mmol/L (3.5-5.1); Total Protein 7.5 gm/dl (6.0-8.3)
--- NOTE | 2022-10-02 07:43 | XRay Report ---
XR chest 1V portable HISTORY: f/u hypoxia COMPARISON: Chest CTA 10/01/2022. FINDINGS: No pneumothorax. No pleural effusions. The cardiac silhouette is mildly enlarged. There is diffuse interstitial thickening which is likely chronic. Left basilar linear densities have progresse d. No evidence for pulmonary edema. IMPRESSION: Interval development of left basilar linear densities which favor subsegmental atelectasis. A pneumon ia could also have a similar appearance in the appropriate clinical setting but is considered less li christen. ACT 112: Negative or not required by law. Electronically signed by: Jean Marie Bucio M.D. 10/02/2022 7:41 AM
[2022-10-02] MEDS: CIPRO 0.3%/DEXAMETHASONE 0.1% OTIC SUSP 7.5ML OTL SCH ×2 (09:49→20:36)
[2022-10-02] MEDS: lisinopril 2.5 MG TAB PO SCH (09:49)
[2022-10-02] MEDS: MULTIVITAMIN TAB PO SCH (09:49)
[2022-10-02] MEDS: AMPICILLIN/SULBACTAM SOD 3,000 MG in 0.9 % SODIUM CHLORIDE 100 ML IV SCH ×3 (10:27→20:36)
[2022-10-02 12:00] LABS: A calco-baum cmplx NotReported Not Detected (NotDetected); Bact fragilis Not Reported Not Detected (NotDetected); C auris Not Reported Not Detected (NotDetected); Calbicans Not Reported Not Detected (NotDetected); Candida glabrata Not Reported Not Detected (NotDetected); Candida krusei Not Reported Not Detected (NotDetected); Cneoformans/gatti Not Reported Not Detected (NotDetected); Cparapsilosis Not Reported Not Detected (NotDetected); Ctropicalis Not Reported Not Detected (NotDetected); E cloacae compx Not Reported Not Detected (NotDetected); Efaecalis Not Reported Not Detected (NotDetected); Efaecium Not Reported Not Detected (NotDetected); Enterobacterales Not Reported Not Detected (NotDetected); Escherichia coli Not Reported Not Detected (NotDetected); H influenzae Not Reported Not Detected (NotDetected); K aerogenes Not Reported Not Detected (NotDetected); Koxytoca Not Reported Not Detected (NotDetected); Kpneumoniae grp Not Reported Not Detected (NotDetected); Lmonocyt Not Reported Not Detected (NotDetected); N meningitidis Not Reported Not Detected (NotDetected); P aeruginosa Not Reported Not Detected (NotDetected); Proteus spp Not Reported Not Detected (NotDetected); Salmonella spp Not Reported Not Detected (NotDetected); Smarcescens Not Reported Not Detected (NotDetected); Staph lugdunensis Not Reported Not Detected (NotDetected); Staph spp. Not Reported Not Detected (NotDetected); Staphaureus Not Reported Not Detected (NotDetected); Staphepi Not Reported Not Detected (NotDetected); Stenmaltophilia Not Reported Not Detected (NotDetected); Strep agal(GrpB) Not Reported Not Detected (NotDetected); Strep pneum Not Reported Not Detected (NotDetected); Strep pyog (GrpA) Not Reported DETECTED (NotDetected); Strep spp Not Reported DETECTED (NotDetected); Streptococcus spp DETECTED (NotDetected)
[2022-10-02 12:13] LABS: Streptococcus pyogenes (GrpA) DETECTED (NotDetected)
[2022-10-02] MEDS ORDERED: PHARMACY GLYCEMIC MGMT CONSULT PRN (12:33)
--- NOTE | 2022-10-02 14:08 | Pharmacy Report ---
Pharmacy Glycemic Short Note 2 - Date of Service October 02, 2022 - Glycemic Short BSG Results (Last 24 hours): 10/01/22 10/02/22 10/02/22 20:25 05:41 07:53 Glucose 208 H POC Glucose 223 H 188 H 10/02/22 12:23 Glucose POC Glucose 231 H OUTPATIENT ANTIDIABETIC REGIMEN: * Metformin 2000mg PO daily before dinner * HbA1c: pending w/ AM labs ASSESSMENT: * Ms Bland is a 76yo diabetic F admitted with tachycardia, ear infection. * Pharmacy was consulted today to assist with glycemic management. * Pt has been slightly hyperglycemic thus far during admission. * Pt was ordered one dose of Lantus today and Novolog was added for correctional/prandial coverage. PLAN FOR INPATIENT GLYCEMIC CONTROL: * Hold outpatient oral diabetes medications * Basal insulin * Lantus 10 units SQ x1 dose this afternoon * re-assess tomorrow * Bolus insulin * NovoLog per scale ACHS or Q6hrs while NPO * Goal Range: Low 110 mg/dL - High 140 mg/dL * Correction Factor: 30 mg/dL/unit * Nutritional / Prandial insulin per carb ratio of 1 unit per 10 grams CHO consumed
[2022-10-02] MEDS ORDERED: GLUCOSE 10 TAB/TUBE PO PRN (14:15)
[2022-10-02] MEDS ORDERED: GLUCAGON FOR INJ 1 MG VIAL IM PRN (14:15)
[2022-10-02] MEDS ORDERED: CARBOHYDRATES FOR HYPOGLYCEMIA PO PRN (14:15)
[2022-10-02] MEDS ORDERED: DEXTROSE 50% 50 ML SYRINGE IV PRN (14:15)
[2022-10-02] MEDS ORDERED: GLUCOSE 40% GEL 15 GM TUBE PO PRN (14:15)
[2022-10-02 15:13] LABS: Appearance Urine Cloudy (Clear); Bacteria Urine Automated Negative (Negative); Bilirubin Urine Negative (Negative); Blood Urine Negative (Negative); Color Urine Orange; Epithelial Cell Urine Auto >30 /lpf (0-5); Glucose Urine UA 2+ (Negative); Ketones Urine Trace (Negative); Leukocyte Esterase Urine Negative (Negative); Nitrite Urine Positive (Negative); Protein Urine 2+ (Negative); Urobilinogen Urine Negative (Negative); WBC Urine Automated >30 /hpf (0-5); pH Urine 5.5 (4.5-7.5)
[2022-10-02] MEDS ORDERED: LANTUS PER UNIT CHARGE SQ ONE (16:30)
[2022-10-02] MEDS: INSULIN ASPART PER UNIT CHARGE SC SCH ×2 (17:29→21:54)
[2022-10-02] MEDS: CALCIUM 600MG + VIT D 400 IU TAB PO SCH (20:36)
[2022-10-02] MEDS: ATORVASTATIN 20 MG TAB PO SCH (20:36)
[2022-10-02] MEDS: VERAPAMIL HCL 180 MG TABCR PO SCH (20:37)
[2022-10-02] MEDS: FAMOTIDINE 20 MG TAB PO SCH (20:37)
[2022-10-02] MEDS: VERAPAMIL HCL 120 MG TABCR PO SCH (20:37)
[2022-10-02] MEDS: NORTRIPTYLINE HCL 25 MG CAP PO SCH (20:37)
--- NOTE | 2022-10-02 21:58 | Hospitalist Progress Note ---
Date of Service October 02, 2022 Assessment & Plan (1) Sepsis: Plan: 76 yo female meets criteria for sepsis. Patient has signs of otitis media with perforated tympanic membrane. Systemic antibiotics were started on 10/02 in AM. Possible mastoiditis on imaging. Patient may require mastoidectomy. No ENT application trainer in hospital this week. Called [facility] locally, they recommended transfer to tertiary center. Called [facility], ENT reviewed images ater requesting radiology to upload to [facility]. ENT from [place], reports no indication for transfer continue systemic antibiotics and otic drops. Concern that patient may not improve given that patient has possibe positvie culture on blood, but this may be a contaminant. Inflammatory markers are also elevated. will closely monitor. Patient was updated throughout the day. Patient will remain on unasyn and crops. Repeat blood cultures. Urine was obtained today after antibiotics and appeared abnormal, but no symptoms. will monitor. (2) Otitis media: Plan: Treatment as above. Possible component of otitis media, perforated tympnaic membrane with possible oitits externa. (3) Otitis externa: Plan: as above. (4) Hypoxia: Plan: NOt exacty sure why patient is hypoxic. No Pulmonary emboli, no pneumonia, some atelectasis, perhaps COPD? as patient is a smoker/ will monitor Prior smoker >20 years ago (5) Hypokalemia: Plan: PO K replacement (did have some choking w/ this). Mag 1gm IV Monitor labs in AM SVT - Hx of such, follows with Dr Rice-- ekg reviewed as above continue verapamil tx infection, pain control as above monitor on telemetry HTN - Lisinopril x 1 now, resume home dose for AM given BP 161/103 (no headache/blurry vision reported) - Continue verapamil 300mg HS HLD - continue Lipitor 20mg HS GERD -Continue Pepcid daily Admission and Anticipated Discharge Date Admission Date: October 01, 2022 Subjective Patient reports no new symptoms. She continues to have drainage in her left ear. Patient is open to transfer to tertiary center if needed. Review of Systems Review of Systems: All systems reviewed & are unremarkable except as noted in HPI & below Physical Exam Physical Exam: General: WN/WD elderly female sitting up in bed, NAD HEENT: head normocephalic, LEFT ear w/ edema of EAC/continues to have drainage of left ear, cervical lymphadenopathy Resp: CTA, no w/c, titrated to room air SpO2 remained 95% CV: tachycardic (, no significant m/r/g, trace LE edema (reports baseline), calves nontender and pulses palpable GI: + BS, soft/NT ; no rae MSK/Neuro: no focal deficit, no slurred speech/facial droop Psych: AOX3, pleasant and cooperative Results & Data Results & Data Vital Signs (Past 12 Hours) Vital Signs Temp Pulse Pulse Resp BP BP Pulse Ox 10/02/22 19:28 36.6 C 111 H 18 146/81 H 93 10/02/22 16:30 113 H 10/02/22 15:11 36.7 C 111 H 20 122/76 95 10/02/22 11:47 118/74 10/02/22 11:43 36.7 C 108 H 20 95/62 L 93 O2 Del Method O2 Flow Rate 10/02/22 19:28 Nasal Cannula 2 10/02/22 16:30 10/02/22 15:11 Nasal Cannula 3 10/02/22 11:47 10/02/22 11:43 Nasal Cannula 3 PG Care Time/CCT Total # of Minutes Spent Total Time Spent with Patient: Total time spent is greater than 50% in coordination of care (as documented) at patient's floor/unit and/or counseling patient: Prolonged Care Time Prolonged Care Time: Yes Total Prolonged Care Time: 120 8:00 to 8:30 11:00 to 11:30 12:00 to 12:45 16:00 to 16:15 17:00 to 17:15 Coding Level of Care Code 52150 SUB INP/OBS CARE 3/50MIN (25 - SIGNIFICANT, SEPARATELY IDENTIFIABLE ) Diagnoses Sepsis A41.9 Otitis media H66.90 Otitis externa H60.90 Hypoxia R09.02 Hypokalemia E87.6 Additional Codes Prolonged Care Time - Prolonged Care Time: Yes ([id number])
[2022-10-03] MEDS: AMPICILLIN/SULBACTAM SOD 3,000 MG in 0.9 % SODIUM CHLORIDE 100 ML IV SCH ×4 (02:43→19:59)
[2022-10-03 06:54] LABS: Basophils # (auto) 0.03 K/uL (0-0.2); Basophils % (auto) 0.2 %; Eosinophils # (auto) 0.25 K/uL (0-0.50); Eosinophils % (auto) 2.1 %; Hemoglobin 12.5 g/dl (12.0-16.0); Immature Granulocytes # (auto) 0.06 K/uL (0.01-0.20); Immature Granulocytes % (auto) 0.5 %; Lymphocytes # (auto) 1.59 K/uL (1.2-3.4); Lymphocytes % (auto) 13.2 %; Mean Corpuscular Hemoglobin 25.8 pg (25.0-34.0); Mean Corpuscular Hgb Conc 31.3 g/dL (32.0-36.0); Mean Corpuscular Volume 82.5 fL (80.0-100.0); Mean Platelet Volume 9.1 fL (9.4-12.4); Monocytes # (auto) 0.94 K/uL (0.11-0.59); Monocytes % (auto) 7.8 %; Neutrophils # (auto) 9.22 K/uL (1.40-6.50); Neutrophils % (auto) 76.2 %; Platelet Count 301 K/uL (130-400); RDW Coefficient of Variation 14.6 % (11.5-14.5); RDW Standard Deviation 43.8 fL (36.4-46.3); Red Blood Count 4.85 M/uL (4.20-5.40); White Blood Count 12.09 K/ul (4.8-10.8)
[2022-10-03 07:32] LABS: BUN Creatinine Ratio 41.9 (10-20); Calcium 8.5 mg/dl (8.6-10.3); Creatinine Clr Calc Pharmacy 118.5 ml/min; Est GFR (African American) 116.1 ml/min; Est GFR (Non-African American) 100.2 ml/min; Potassium 3.6 mmol/L (3.5-5.1)
[2022-10-03 07:42] LABS: Estimated Average Glucose 166 mg/dl; Hemoglobin A1C 7.4 % (4.5-5.6)
[2022-10-03] MEDS: lisinopril 2.5 MG TAB PO SCH (09:20)
[2022-10-03] MEDS: MULTIVITAMIN TAB PO SCH (09:20)
[2022-10-03] MEDS: CIPRO 0.3%/DEXAMETHASONE 0.1% OTIC SUSP 7.5ML OTL SCH ×2 (09:21→20:00)
[2022-10-03] MEDS: INSULIN ASPART PER UNIT CHARGE SC SCH ×4 (09:32→21:14)
[2022-10-03] MEDS: LANTUS PER UNIT CHARGE SQ SCH (09:34)
[2022-10-03] MEDS: ACETAMINOPHEN 325 MG TAB PO PRN (09:38)
--- NOTE | 2022-10-03 11:53 | XCELERA ---
[id number] \\[id number]
--- NOTE | 2022-10-03 13:43 | Pharmacy Report ---
Pharmacy Glycemic Short Note 2 - Date of Service October 03, 2022 - Glycemic Short BSG Results (Last 24 hours): 10/02/22 10/02/22 10/03/22 16:51 20:04 05:43 Glucose 170 H POC Glucose 213 H 149 H 10/03/22 10/03/22 07:53 11:52 Glucose POC Glucose 167 H 131 H OUTPATIENT ANTIDIABETIC REGIMEN: * Metformin 2000mg PO daily before dinner * HbA1c: 7.4% (10/03/22) ASSESSMENT: 10/03: * Nettie received 19 units of insulin yesterday, 10 units basal + 9 units bolus. * Fasting BSG improved to 167 mg/dL today. * No change to basal regimen. * Lunchtime BSG decreased to 131 mg/dL. * Loosened CF and CR. * Continues on Unasyn for otitis media and possible mastoiditis. 10/02: * Ms Bland is a 76yo diabetic F admitted with tachycardia, ear infection. * Pharmacy was consulted today to assist with glycemic management. * Pt has been slightly hyperglycemic thus far during admission. * Pt was ordered one dose of Lantus today and Novolog was added for correctional/prandial coverage. PLAN FOR INPATIENT GLYCEMIC CONTROL: * Hold outpatient oral diabetes medications * Basal insulin * Lantus 10 units SC daily * Bolus insulin * NovoLog per scale ACHS or Q6hrs while NPO * Goal Range: Low 110 mg/dL - High 140 mg/dL * Correction Factor: 35 mg/dL/unit * Nutritional / Prandial insulin per carb ratio of 1 unit per 12 grams CHO consumed
[2022-10-03] MEDS: ATORVASTATIN 20 MG TAB PO SCH (20:00)
[2022-10-03] MEDS: CALCIUM 600MG + VIT D 400 IU TAB PO SCH (20:00)
[2022-10-03] MEDS: NORTRIPTYLINE HCL 25 MG CAP PO SCH (20:01)
[2022-10-03] MEDS: FAMOTIDINE 20 MG TAB PO SCH (20:01)
[2022-10-03] MEDS: VERAPAMIL HCL 180 MG TABCR PO SCH (20:01)
[2022-10-03] MEDS: VERAPAMIL HCL 120 MG TABCR PO SCH (20:01)
[2022-10-03] MEDS: oxyCODONE HCL IR 5 MG TAB (IMMEDIATE RELEASE) PO PRN (20:01)
--- NOTE | 2022-10-03 22:57 | Hospitalist Progress Note ---
Date of Service October 03, 2022 Assessment & Plan (1) Sepsis: Plan: 76 yo female meets criteria for sepsis. Patient has signs of otitis media with perforated tympanic membrane. Systemic antibiotics were started on 10/02 in AM. Possible mastoiditis on imaging. Patient may require mastoidectomy. No ENT information management officer in hospital this week. Called [facility] locally, they recommended transfer to tertiary center on 10/02. Called [facility], ENT reviewed images ater requesting radiology to upload to [facility] 10/02 [facility]NT from [place], reports no indication for transfer continue systemic antibiotics and otic drops. Concern that patient may not improve given that patient has possibe positvie culture on blood, but this may be a contaminant. Inflammatory markers are also elevated. Thankfully, patient on 10/03 appears to be improving clinically. will closely monitor her inflammatory markers as they were elevated will continue unasyn and cipro otic drops Blood cultures appear to be a possible contaminant due to only one set being positive. Urine was obtained today after antibiotics and appeared abnormal, but no symptoms. If patient improves may consider discharge. If further guidance needed, would recommend reaching out to [facility] [place] as they are aware of this case. (2) Otitis media: Plan: Treatment as above. Possible component of otitis media, perforated tympnaic membrane with possible oitits externa. (3) Otitis externa: Plan: as above. (4) Hypoxia: Plan: NOt exacty sure why patient is hypoxic. No Pulmonary emboli, no pneumonia, some atelectasis, perhaps COPD? as patient is a smoker/ will monitor Prior smoker >20 years ago (5) Hypokalemia: Plan: PO K replacement (did have some choking w/ this). Mag 1gm IV Monitor labs in AM SVT - Hx of such, follows with Dr Rice-- ekg reviewed as above continue verapamil tx infection, pain control as above monitor on telemetry HTN - Lisinopril x 1 now, resume home dose for AM given BP 161/103 (no headache/blurry vision reported) - Continue verapamil 300mg HS HLD - continue Lipitor 20mg HS GERD -Continue Pepcid daily Admission and Anticipated Discharge Date Admission Date: October 01, 2022 Subjective 76 yo female reports having less drainage in her left ear. SHe reports feeling better. She states she no longer has to remove the gauze from her left ear every 30 minutes. Patient reports her pain has iproved as well. Review of Systems Review of Systems: All systems reviewed & are unremarkable except as noted in HPI & below Physical Exam Physical Exam: General: WN/WD elderly female sitting up in bed, NAD HEENT: head normocephalic, LEFT ear w/ edema of EAC/continues to have drainage of left ear, cervical lymphadenopathy Resp: CTA, no w/c CV: tachycardic (, no significant m/r/g, trace LE edema (reports baseline), calves nontender and pulses palpable GI: + BS, soft/NT ; no rae MSK/Neuro: no focal deficit, no slurred speech/facial droop Psych: AOX3, pleasant and cooperative Results & Data Results & Data Vital Signs (Past 12 Hours) Vital Signs Temp Pulse Pulse Resp BP Pulse Ox O2 Del Method 10/03/22 18:47 36.8 C 115 H 20 147/78 H 94 Nasal Cannula 10/03/22 14:05 102 H 10/03/22 14:47 37.0 C 102 H 20 134/76 93 Nasal Cannula 10/03/22 11:38 37.1 C 113 H 20 120/73 94 Nasal Cannula O2 Flow Rate 10/03/22 18:47 2 10/03/22 14:05 10/03/22 14:47 2 10/03/22 11:38 2 PG Care Time/CCT Total # of Minutes Spent Total Time Spent with Patient: Total time spent is greater than 50% in coordination of care (as documented) at patient's floor/unit and/or counseling patient: Coding Level of Care Code 58451 SUB INP/OBS CARE 2/35MIN Diagnoses Sepsis A41.9 Otitis media H66.90 Otitis externa H60.90 Hypoxia R09.02 Hypokalemia E87.6
[2022-10-04] MEDS: AMPICILLIN/SULBACTAM SOD 3,000 MG in 0.9 % SODIUM CHLORIDE 100 ML IV SCH ×2 (03:58→10:01)
[2022-10-04 07:45] LABS: Hematocrit (blood only) 36.7 % (37.0-47.0); Hemoglobin 11.8 g/dl (12.0-16.0); Mean Corpuscular Hemoglobin 25.9 pg (25.0-34.0); Mean Corpuscular Hgb Conc 32.2 g/dL (32.0-36.0); Mean Corpuscular Volume 80.7 fL (80.0-100.0); Mean Platelet Volume 8.9 fL (9.4-12.4); Platelet Count 302 K/uL (130-400); RDW Coefficient of Variation 14.2 % (11.5-14.5); RDW Standard Deviation 41.6 fL (36.4-46.3); Red Blood Count 4.55 M/uL (4.20-5.40); White Blood Count 9.54 K/ul (4.8-10.8)
[2022-10-04 08:00] LABS: BUN Creatinine Ratio 48.4 (10-20); C Reactive Protein 10.6 mg/dl (0-0.5); Calcium 8.4 mg/dl (8.6-10.3); Creatinine Clr Calc Pharmacy 164.1 ml/min; Est GFR (African American) 129.3 ml/min; Est GFR (Non-African American) 111.6 ml/min; Potassium 3.4 mmol/L (3.5-5.1)
--- NOTE | 2022-10-04 08:13 | Hospitalist Progress Note ---
Date of Service October 04, 2022 Assessment & Plan (1) Sepsis: Plan: Acute Sepsis secondary to otitis media with perforated tympanic membrane. Possible mastoiditis on imaging. Otitis externa-high risk Patient may require mastoidectomy. No ENT personal lines advisor in hospital this week. Previous provider Called [facility] locally, they recommended transfer to tertiary center on 10/02. Called [facility], ENT reviewed images after requesting radiology to upload to [facility] 10/02 ENT from [place], reports no indication for transfer continue systemic antibiotics and otic drops. Inflammatory markers are also elevated. continue unasyn and cipro otic drops Blood cultures appear to be a possible contaminant due to only one set being positive. (2) Hypoxia: Plan: acute possible on chronic hypoxia CTA ruled out Pulmonary emboli, no pneumonia, chronic tobacco abuse, consider COPD Prior smoker >20 years ago (3) Sinus tachycardia: Plan: Chronic SVT, follows with Dr Rice--replete hypokalemia continue verapamil Chronic stable, HTN resume lisinopril and Continue verapamil 300mg HS Chronci stble dyspilpemia- continue Lipitor 20mg HS Admission and Anticipated Discharge Date Admission Date: October 01, 2022 Results & Data Results & Data Vital Signs (Past 12 Hours) Vital Signs Temp Pulse Pulse Resp BP BP Pulse Ox 10/04/22 07:37 98 H 10/04/22 07:18 98.2 F 99 H 14 137/88 88 L 10/04/22 07:15 98.2 F 99 H 14 137/80 88 L 10/04/22 04:00 99.5 F 100 H 18 135/74 94 10/04/22 00:12 109 H 10/03/22 23:00 98.2 F 102 H 18 136/79 95 O2 Del Method O2 Flow Rate 10/04/22 07:37 10/04/22 07:18 Room Air 10/04/22 07:15 Nasal Cannula 10/04/22 04:00 Nasal Cannula 2 10/04/22 00:12 10/03/22 23:00 Nasal Cannula 2 PG Care Time/CCT Total # of Minutes Spent Total Time Spent with Patient: Total time spent is greater than 50% in coordination of care (as documented) at patient's floor/unit and/or counseling patient: Coding Diagnoses Sepsis A41.9 Hypoxia R09.02 Sinus tachycardia R00.0
[2022-10-04] MEDS: lisinopril 2.5 MG TAB PO SCH (09:29)
[2022-10-04] MEDS: MULTIVITAMIN TAB PO SCH (09:30)
[2022-10-04] MEDS: CIPRO 0.3%/DEXAMETHASONE 0.1% OTIC SUSP 7.5ML OTL SCH (09:32)
[2022-10-04] MEDS: INSULIN ASPART PER UNIT CHARGE SC SCH ×2 (09:42→12:28)
[2022-10-04] MEDS: LANTUS PER UNIT CHARGE SQ SCH (09:45)
[2022-10-04] MEDS: ACETAMINOPHEN 325 MG TAB PO PRN (09:56)
--- NOTE | 2022-10-04 13:15 | Pharmacy Report ---
Pharmacy Glycemic Short Note 2 - Date of Service October 04, 2022 - Glycemic Short BSG Results (Last 24 hours): 10/03/22 10/03/22 10/04/22 16:58 20:09 07:06 Glucose 138 H POC Glucose 126 H 143 H 10/04/22 10/04/22 07:06 11:18 Glucose POC Glucose 125 H 200 H OUTPATIENT ANTIDIABETIC REGIMEN: * Metformin 2000mg PO daily before dinner * HbA1c: 7.4% (10/03/22) ASSESSMENT: 10/04: * Patient received 16 units of insulin yesterday with good BSG control- 10 units of basal + 6 units of prandia * Fasting down to 125 mg/dL today- continue same * Lunch BSG elevated, however breakfast insulin administered relatively close to this BSG, therefore will hold off on making additional change for now. Monitor. 10/03: * Nettie received 19 units of insulin yesterday, 10 units basal + 9 units bolus. * Fasting BSG improved to 167 mg/dL today. * No change to basal regimen. * Lunchtime BSG decreased to 131 mg/dL. * Loosened CF and CR. * Continues on Unasyn for otitis media and possible mastoiditis. 10/02: * Ms Bland is a 76yo diabetic F admitted with tachycardia, ear infection. * Pharmacy was consulted today to assist with glycemic management. * Pt has been slightly hyperglycemic thus far during admission. * Pt was ordered one dose of Lantus today and Novolog was added for correctional/prandial coverage. PLAN FOR INPATIENT GLYCEMIC CONTROL: * Hold outpatient oral diabetes medications * Basal insulin * Lantus 10 units SC daily * Bolus insulin * NovoLog per scale ACHS or Q6hrs while NPO * Goal Range: Low 110 mg/dL - High 140 mg/dL * Correction Factor: 35 mg/dL/unit * Nutritional / Prandial insulin per carb ratio of 1 unit per 12 grams CHO consumed
--- NOTE | 2022-10-04 15:19 | Discharge Summary ---
Date of Service October 04, 2022 Admission HPI Per Admitting Provider 76yo female with PMHx significant for SVT (s/p ablation, follows with Dr Rice), NAKUL (CPAP HS w/ oxygen), GERD, HTN, HLD, was seen by PCP for concerns of left ear pain and sent ot ER for concerns of tachycardia/SVT. She does take verapamil 300mg HS. Rates elevated to 120-130s, however patient denies any chest pain/shortness of breath. Had not had anything to eat yet today but was eating/drinking alright up until today. She is reporting pain and drainage from her left ear. Had been sent rx for Amoxicillin but that went to pharmacy per patient and not helpful in current situation. Patient had O2 drop to 80s, on 2L and reported good wave form. Patient see, saturating well and denied any SOB, rates 110s and turned off O2 w/ great wave form and SpO2 95% at that time. Patient stated she would be more comfortable going home and discussed giving pain control and monitoring heart rate/O2 and if remains stable and rates improved w/ her pain controlled, EKG was reviewed by Dr Rice and felt physiological response/tachycardia to pain from her ear infection and recommended pain control and treatment of ear infection. Former smoker, quit in [address]. CT chest NEGATIVE for PE, no effusion or consolidative process. She was given Cardizem and IVF w/o improvement in rates, but stated ongoing ear discomfort, had taken some ibuprofen and Tylenol at home but not very effective. Has not gotten anything for pain at present. Has been given multiple IVF - 1.5L thus far. Patient initially like to go home if at all possible -- discussed with ER provider and will attempt pain control and monitor and hopefully be able to discharge patient home today from the ER, however sustained SpO2 to 85% walking. Also concerns about possible dental infection and will check CT soft tissue. Principal Diagnosis sepsis secondary to otitis media otitis externa supraventricular tachycardia Discharge Exam Patient was seen on day of discharge she was stable for discharge she has limited pain and discomfort over her mastoid sinus. Her cardiac exam is regular Discharge Data Allergies Allergy/AdvReac Type Severity Reaction Status Date / Time No Known Allergies Allergy Unknown Verified 10/01/22 15:23 Consultations 10/01/22 14:49 ED Decision to Admit Stat Ordered Studies 10/01/22 12:47 CT angio chest PE protocol Stat 10/01/22 19:09 CT facial bones w con Urgent Hospital Course (1) Sepsis: Acute Sepsis secondary to otitis media with perforated tympanic membrane. Possible mastoiditis on imaging. Otitis externa-high risk Patient may require mastoidectomy. No ENT human relations professor in hospital this week. [facility] provider [facility], they recommended transfer to tertiary center on 10/02. Called [facility], ENT reviewed images after requesting radiology to upload to [facility] 10/02 ENT from [place], reports no indication for transfer continue systemic antibiotics and otic drops. Inflammatory markers are improved continue levaquin and cipro otic drops after discharge Blood cultures appear to be a possible contaminant due to only one set being positive. however with strep will use Levaquin to cover (2) Hypoxia: acute possible on chronic hypoxia, hypoxia resolved CTA ruled out Pulmonary emboli, no pneumonia, chronic tobacco abuse, consider COPD Prior smoker >20 years ago (3) Sinus tachycardia: Chronic SVT, follows with Dr Rice--replete hypokalemia continue verapamil Chronic stable, HTN resume lisinopril and Continue verapamil 300mg HS Chronci stble dyspilpemia- continue Lipitor 20mg HS Total Time Total Time Spent Total Time Spent (In Minutes): It required greater than 30 minutes to prepare this patient for discharge Discharge Plan Discharge Items Patient Disposition: Home - Self-Care Reason For Visit: TACHYCARDIA, EAR INFECTION Discharge Diagnosis: otitis media otitis externa sinus tachycardia Activity: Resume your previous activity Non-emergency contact: Primary Care Provider Call non-emergency contact if: your symptoms worsen Follow-up/Referrals: Sandra Montes [Primary Care Provider] - 10/10/22 12:45 pm (WITH DR. MAYORGA) Diet: Regular Addtl Attending Provider Instructions: please take all of your antibiotics, continue ear drops follow up with Dr Montes and consider seeing a Ear Nose and throat doctor Pending Studies at Discharge: No Stand-Alone Forms: My [employer], Smoking Cessation Medications and DC Order Prescriptions: New ciprofloxacin-dexamethasone 0.3-0.1 % drops,suspension 2 drp OTL BID Qty: 1 0RF tramadol 50 mg tablet 50 mg PO Q8H PRN (Reason: pain) Qty: 14 0RF levofloxacin 750 mg tablet 750 mg PO DAILY 10 Days Qty: 10 0RF Continued atorvastatin [Lipitor] 20 mg tablet 20 mg PO HS nortriptyline [Pamelor] 25 mg capsule 25 mg PO HS verapamil [Verelan PM] 300 mg capsule, [address] 300 mg PO HS multivitamin Tablet 1 tab PO QAM lisinopril [Zestril] 2.5 mg tablet 2.5 mg PO QAM calcium carbonate-vitamin D3 [Calcium 600 + D(3)] 600 mg(1,500mg) -400 unit Tablet 1 tab PO HS metformin 500 mg tablet extended release 24 hr 2,000 mg PO DAILYBD Rx Instructions: TAKE FOUR TABLETS WITH EVENING MEAL. alendronate 70 mg tablet 70 mg PO WK Rx Instructions: TAKE THIS MED EVERY SATURDAY famotidine 20 mg tablet 20 mg PO HS diclofenac sodium 1 % gel 1 ea TOPICAL QID PRN (Reason: Pain) Discontinued amoxicillin 500 mg capsule 500 mg PO USEASDIRECTD PRN (Reason: Dental Work) prednisolone acetate [Pred Forte] 1 % Drops,Suspension 1 drp OPB HS Discharge Orders: Discharge Order (Routine); Ordered 10/04/22 Ordered By: Brian Gagnon/Other Patient Handouts: Managing Type 2 Diabetes Admission Data Admit Date/Time: 10/01/22 16:12 Attending Provider: Brian Lindo Admit Provider: Jayden Hercules Primary Care Provider: Sandra Montes Other Providers: Jayden Hercules Coding Level of Care Code 31109 INP/OBS DISCH >30 MIN Diagnoses Sepsis A41.9 Hypoxia R09.02 Sinus tachycardia R00.0
== END 2022-10-04 17:00 | disposition home or self-care (01) | DRG 872 ==
LOC: ED 11:33 → SUATTDRO 16:12 → 2N 16:12